=== PATIENT | female | born 1995 | race Caucasian/White ===

== ENCOUNTER → 2023-01-04 13:33 | Outpatient (CLI) | payer OTHER, MEDICAID, SELFPAY ==
[2023-01-04 19:36] LABS: HEMOLYSIS < 15 (0-50); Iron 147 ug/dL (37-170)
[2023-01-04 19:38] LABS: Alanine Aminotransferase 26 IU/L (<35); Albumin 4.5 g/dL (3.5-5.0); Albumin Globulin Ratio 1.8 (1.0-2.8); Alkaline Phosphatase 71 U/L (38-126); Aspartate Aminotransferase 23 IU/L (14-36); BUN Creatinine Ratio 13.8 (6-22); Bilirubin Total 0.2 mg/dL (0.2-1.3); Blood Urea Nitrogen 8 mg/dL (7-17); Calcium 9.5 mg/dL (8.4-10.2); Carbon Dioxide 27 mmol/L (22-32); Chloride 100 mmol/L (98-107); Estimated Glomerular Filt Rate > 60 mL/min (>60); Globulin 2.5 g/dL (1.7-4.1); Glucose 97 mg/dL (70-100); HEMOLYSIS < 15 (0-50); Potassium 3.9 mmol/L (3.4-5.1); Sodium 136 mmol/L (137-145)
[2023-01-04 19:46] LABS: Add Manual Diff / Slide Review NO; Basophils Absolute Auto 0 /uL (0-100); Basophils Percent Auto 0.5 % (0-2); Eosinophils Absolute Auto 0 /uL (0-450); Eosinophils Percent Auto 0.6 % (2-4); Hematocrit 38.5 % (36-46); Lymphocytes Absolute Auto 2100 /uL (1100-4500); Lymphocytes Percent Auto 28.5 % (25-40); Mean Corpuscular HGB Conc 33.9 % (30-36); Mean Corpuscular Volume 91.3 fL (80-100); Monocytes Absolute Auto 500 /uL (0-900); Monocytes Percent Auto 7.1 % (3-14); Neutrophils Absolute Auto 4600 /uL (1500-7000); Neutrophils Percent Auto 63.3 % (50-75); Platelet Count 357 X10^3/uL (150-400); Red Blood Cell Count 4.21 X10^6/uL (4.0-5.2); Red Cell Distribution Width 12.5 % (11.6-14.8); White Blood Cell Count 7.2 X10^3/uL (4.5-11.0)
[2023-01-04 19:51] LABS: Percent Iron Saturation 40 % (15-50); Total Iron Binding Capacity 366 ug/dL (265-497); Transferrin 273 mg/dL (206-381); Vitamin D 25 Hydroxy (D3) 21.1 ng/mL (30.0-100.0)
[2023-01-04 20:06] LABS: Ferritin 27 ng/mL (6-137); TSH w/ Reflex to FT4 1.93 uIU/mL (0.47-4.68)
[2023-01-04 20:37] LABS: Folate 4.6 ng/mL (2.76-20.0); Vitamin B12 Reflex MMA if <400 451 pg/mL (239-931)
== END ==
PROVIDERS: PCP Family Medicine; Visit Provider Family Medicine
DX: R55 Syncope and collapse (principal); Z86.59 Personal history of other mental and behavioral disorders
CPT/HCPCS: 80053; 82306; 82607; 82728; 82746; 83540; 83550; 84443; 85025

== ENCOUNTER → 2023-06-14 12:15 | Outpatient (CLI) | payer OTHER, MEDICAID, SELFPAY | PROVIDERS: PCP Family Medicine; Visit Provider Physician Assistant Medical | DX: H60.12 Cellulitis of left external ear (principal) | CPT/HCPCS: 87070; 87075; 87077; 87186; 87205 ==